=== PATIENT | female | born 1975 ===

== ENCOUNTER 2016-12-25 16:55 | Inpatient (IN) | payer OTHER ==
[2016-12-25] MEDS ORDERED: Sodium Chloride 0.9% 1,000 ML IV ONE ×2 (17:19→18:48)
[2016-12-25 17:20] VITALS: BMI 27.6
[2016-12-25] MEDS ORDERED: cefTRIAXone IV 1 gm in Dextros 50 ML IVPB ONE ×2 (17:21→17:37)
--- NOTE | 2016-12-25 17:27 | C.PDOC ---
History Of Present Illness 41-year-old female, PMHx includes Hyperthyroidism, presents to the emergency department with complaints of fever, vomiting, generalized headache, and chills that started earlier today. Patient states she has no complaints of pain, cough or sore throat. States she has stoped taking methamizole for last month as she was due for outpt test, but restarted 3 days ago (did not take today) Time Seen by Provider: 12/25/16 17:04 Chief Complaint (Nursing): Fever History Per: Patient History/Exam Limitations: no limitations Onset/Duration Of Symptoms: Hrs Current Symptoms Are (Timing): Still Present Past Medical History Reviewed: Historical Data, Nursing Documentation, Vital Signs Vital Signs: Last Vital Signs Temp 97.6 F 12/26/16 08:00 Pulse 97 H 12/26/16 08:00 Resp 20 12/26/16 08:00 BP 103/49 L 12/26/16 08:00 Pulse Ox 98 12/26/16 08:00 - Medical History PMH: Hyperthyroidism Surgical History: Cholecystectomy (x3) Family History: States: Unknown Family Hx - Social History Hx Tobacco Use: Yes Hx Alcohol Use: No Hx Substance Use: No - Immunization History Hx Tetanus Toxoid Vaccination: No Hx Influenza Vaccination: No Hx Pneumococcal Vaccination: No Review Of Systems Except As Marked, All Systems Reviewed And Found Negative. Constitutional: Positive for: Fever, Chills Respiratory: Negative for: Cough, Shortness of Breath Gastrointestinal: Positive for: Vomiting Genitourinary: Negative for: Dysuria, Frequency Musculoskeletal: Negative for: Back Pain Neurological: Positive for: Headache. Negative for: Weakness, Numbness, Dizziness Physical Exam - Physical Exam Appears: Non-toxic, No Acute Distress, Other (Moderately agitated and anxious appearing.) Skin: Warm, Dry, No Rash Head: Atraumatic, Normacephalic Eye(s): bilateral: Other (exophthalmos) Nose: Normal Oral Mucosa: Moist Lips: Normal Appearing Neck: Normal ROM Cardiovascular: Rhythm Regular Respiratory: Normal Breath Sounds, No Accessory Muscle Use Extremity: Normal ROM Neurological/Psych: Oriented x3, Normal Speech ED Course And Treatment - Laboratory Results Result Diagrams: 12/26/16 06:20 12/26/16 06:18 O2 Sat by Pulse Oximetry: 100 Critical Care Time - Critical Care Note Total Time (in mins): 45 Documented critical care: time excludes all time spent performing seperately billable procedures. Medical Decision Making Medical Decision Making: r/o sepsis vs thyroid storm Plan: * VBG * EKG * CMP, Thyroid Panel, Trop I * CXR * CBC, PTT, PT * IVF, Tylenol, Zofran, Ceftriaxone * Blood/Urine Culture * 624: ekg sinus tach 123, no st t wave changes. BWPS score calculated to be 65. beta tyrell dosed. case discusse with ICU dr foss, pending icu eval. case accepted by dr mcdonald pending icu eval 700: pt endorsed to operations supervisor 2nd shift. pending ICU eval, and final dispo Disposition - Disposition Disposition: HOSPITALIZED Disposition Time: 07:00 Condition: SERIOUS - Clinical Impression Clinical Impression: Thyroid storm - Scribe Statement The provider has reviewed the documentation as recorded by the Mirellaibvalarie Nazario All medical record entries made by the Scribe were at my direction and personally dictated by me. I have reviewed the chart and agree that the record accurately reflects my personal performance of the history, physical exam, medical decision making, and the department course for this patient. I have also personally directed, reviewed, and agree with the discharge instructions and disposition.
[2016-12-25] MEDS ORDERED: Sodium Chloride 0.9% 1,000 ML ONE (17:37)
[2016-12-25 17:51] LABS: VENOUS BLOOD GAS BASE EXCESS -0.2 mmol/L (0.0-2.0); VENOUS BLOOD GAS PCO2 31 mmHg (40-60); VENOUS BLOOD PH 7.47 (7.32-7.43)
[2016-12-25 17:55] LABS: RBC URINE 89 /hpf (0-3); URINE BACTERIA MOD (<OCC); URINE BILIRUBIN NEGATIVE (NEGATIVE); URINE BLOOD 2+ (NEGATIVE); URINE COLOR Amber (YELLOW); URINE GLUCOSE (UA) NORMAL (Normal); URINE KETONE NEGATIVE (NEGATIVE); URINE LEUKOCYTE ESTERASE 3+ Leu/uL (Negative); URINE PROTEIN 2+ mg/dL (NEGATIVE); WBC CLUMPS MANY /hpf; WBC URINE 1193 /hpf (0-5)
[2016-12-25 17:59] LABS: BASO % 0.3 % (0.0-2.0); EOS % 0.1 % (0.0-4.0); LYMPH # 1.3 K/uL (1.0-4.3); MEAN CELL VOLUME 79.1 fL (81.0-99.0); MEAN CORPUSCULAR HEMOGLOBIN 26.3 pg (27.0-31.0); MEAN CORPUSCULAR HGB CONC 33.3 g/dL (33.0-37.0); MEAN PLATELET VOLUME 8.6 fL (7.2-11.7); MONO # 0.9 K/uL (0.0-0.8); MONO % 8.8 % (0.0-10.0); WHITE BLOOD COUNT 10.3 K/uL (4.8-10.8)
[2016-12-25 18:10] LABS: INR 1.4
[2016-12-25 18:16] LABS: CHLORIDE 101 mmol/L (98-107); POTASSIUM 3.8 mmol/L (3.6-5.2); SODIUM 132 mmol/L (132-148)
[2016-12-25 18:18] LABS: BILIRUBIN,TOTAL 2.6 mg/dL (0.2-1.3); CARBON DIOXIDE 22 mmol/L (22-30); GFR AFRICAN-AMERICAN > 60
[2016-12-25 18:19] LABS: ALB/GLOB RATIO 0.8 (1.0-2.1); ALKALINE PHOSPHATASE 122 U/L (38-126); ALT/SGPT 30 U/L (9-52); AST/SGOT 30 U/L (14-36); BLOOD UREA NITROGEN 12 mg/dL (7-17); CALCIUM 8.3 mg/dl (8.6-10.4); GLUCOSE,RANDOM 92 mg/dL (65-105); TOTAL PROTEIN 6.8 g/dL (6.3-8.3)
[2016-12-25] MEDS ORDERED: Propranolol 60 mg ER Cap PO STA (18:23)
[2016-12-25 18:45] LABS: THYROID STIMULATING HORMONE < 0.02 mIU/L (0.46-4.68)
--- NOTE | 2016-12-25 20:29 | CP.PCM.CON ---
History of Present Illness - History of Present Illness History of Present Illness: CCM 41 yo female with hx Hyperthyroidism to ED c/o [place] and leg pain today. + vomiting. [place] cold. No sob /diarrhea /cough /dysuria. Pt has been off methimazole but took 2-3 days aog. Tachy and febrile in ED. Started on Ab for UTI. Given propanolol/ tylenol and IV fluid. Pt feels sl. better. ROS- as noted All- NKDA Social- + tob/ n oetoh or drugs PSH- Cholecystectomy Meds- reviewed FH- Unknown Pe T- 102.7--> 98.8 P 120 R- 20 BP- 128/63 Pt anxious and sl. tremulous Perrl + exopthalmos Neck-+ goiter Lungs- bilat bs Heart-rr aBd- bs+, soft, nontender Ext- no edema, + pulses intact Neuro-nonfocal Labs, EKG, [id number] A&P Thyroid Storm/Hyperthyroidism UTI +Smoker Toño to ICU cont IV fluid/Ab cont BB / Methimazole Rx steroids Endocrine eval f/u cultures antipyretics prn antiemetics prn DVT prophylaxis Past Patient History - Infectious Disease Hx of Infectious Diseases: None - Past Social History Smoking Status: Light Smoker < 10 Cigarettes Daily - ENDOCRINE/METABOLIC Hx Hyperthyroidism: Yes - PSYCHIATRIC Hx Substance Use: No - SURGICAL HISTORY Hx Cholecystectomy: Yes (x3) - ANESTHESIA Hx Anesthesia: Yes Hx Anesthesia Reactions: No Hx Malignant Hyperthermia: No Meds Allergies/Adverse Reactions: Allergies Allergy/AdvReac Type Severity Reaction Status Date / Time No Known Allergies Allergy Verified 12/25/16 17:11 Results - Vital Signs Recent Vital Signs: Last Vital Signs Temp 98.8 F 12/25/16 19:00 Pulse 120 H 12/25/16 19:00 Resp 16 12/25/16 19:00 BP 128/63 12/25/16 19:00 Pulse Ox 100 12/25/16 19:00 - Labs Result Diagrams: 12/25/16 17:50 12/25/16 17:50 Labs: Laboratory Results - last 24 hr 12/25/16 12/25/16 12/25/16 17:36 17:45 17:50 WBC 10.3 D RBC 4.29 Hgb 11.3 Hct 34.0 MCV 79.1 L MCH 26.3 L MCHC 33.3 RDW 13.0 Plt Count 246 MPV 8.6 Neut % (Auto) 77.8 H Lymph % (Auto) 13.0 L [place] % (Auto) 8.8 Eos % (Auto) 0.1 Baso % (Auto) 0.3 Neut # 8.0 H Lymph # 1.3 [place] # 0.9 H Eos # 0.0 Baso # 0.0 PT INR APTT pO2 44 VBG pH 7.47 H VBG pCO2 31 L VBG HCO3 24.4 VBG Total CO2 23.6 VBG O2 Sat (Calc) 87.4 H VBG Base Excess -0.2 L VBG Potassium 3.9 Sodium 135.0 Chloride 106.0 Glucose 88 Lactate 1.2 FiO2 21.0 Potassium Carbon Dioxide Anion Gap BUN Creatinine Est GFR ( Amer) Est GFR (Non-Af Amer) Random Glucose Calcium Total Bilirubin AST ALT Alkaline Phosphatase Troponin I Total Protein Albumin Globulin Albumin/Globulin Ratio Free T4 TSH 3rd Generation Venous Blood Potassium 3.9 Urine Color Tanna Urine Clarity Turbid Urine pH 5.0 Ur Specific [place] 1.015 Urine Protein 2+ H Urine Glucose (UA) Normal Urine Ketones Negative Urine Blood 2+ H Urine Nitrate Positive H Urine Bilirubin Negative Urine Urobilinogen 2.0 H Ur Leukocyte Esterase 3+ H Urine WBC (Auto) 1193 H Urine RBC (Auto) 89 H Urine WBC Clumps (Auto) Many H Ur Squamous Epith Cells 14 H Urine Bacteria Mod H Urine HCG, Qual Negative 12/25/16 12/25/16 12/25/16 17:50 17:50 17:50 WBC RBC Hgb Hct MCV MCH MCHC RDW Plt Count MPV Neut % (Auto) Lymph % (Auto) [place] % (Auto) Eos % (Auto) Baso % (Auto) Neut # Lymph # [place] # Eos # Baso # PT 15.8 H INR 1.4 APTT 36 H pO2 VBG pH VBG pCO2 VBG HCO3 VBG Total CO2 VBG O2 Sat (Calc) VBG Base Excess VBG Potassium Sodium 132 Chloride 101 Glucose Lactate FiO2 Potassium 3.8 Carbon Dioxide 22 Anion Gap 14 BUN 12 Creatinine 0.4 L Est GFR ( Amer) > 60 Est GFR (Non-Af Amer) > 60 Random Glucose 92 Calcium 8.3 L Total Bilirubin 2.6 H AST 30 ALT 30 Alkaline Phosphatase 122 Troponin I < 0.0120 Total Protein 6.8 Albumin 3.1 L Globulin 3.7 Albumin/Globulin Ratio 0.8 L Free T4 > 6.99 H TSH 3rd Generation < 0.02 L Venous Blood Potassium Urine Color Urine Clarity Urine pH Ur Specific [place] Urine Protein Urine Glucose (UA) Urine Ketones Urine Blood Urine Nitrate Urine Bilirubin Urine Urobilinogen Ur Leukocyte Esterase Urine WBC (Auto) Urine RBC (Auto) Urine WBC Clumps (Auto) Ur Squamous Epith Cells Urine Bacteria Urine HCG, Qual Assessment & Plan (1) Thyroid storm Status: Acute Priority: High
[2016-12-25] MEDS: Sodium Chloride 0.9% 1,000 ML IV SCH (21:48)
[2016-12-26] MEDS: Sodium Chloride 0.9% 1,000 ML IV SCH ×5 (03:55→23:30)
[2016-12-26] MEDS ORDERED: Oxycodone/Acetaminophen 5/325 mg Tab PO STA (06:21)
[2016-12-26 06:30] LABS: BASO % 0.1 % (0.0-2.0); HEMATOCRIT 31.4 % (34.0-47.0); LYMPH # 0.8 K/uL (1.0-4.3); LYMPH % 4.9 % (20.0-40.0); MEAN CELL VOLUME 80.2 fL (81.0-99.0); MEAN CORPUSCULAR HEMOGLOBIN 26.3 pg (27.0-31.0); MEAN CORPUSCULAR HGB CONC 32.8 g/dL (33.0-37.0); MEAN PLATELET VOLUME 8.8 fL (7.2-11.7); MONO # 1.3 K/uL (0.0-0.8); MONO % 7.6 % (0.0-10.0); PLATELET COUNT 217 K/uL (130-400); RED CELL DISTRIBUTION WIDTH 13.2 % (11.5-14.5); WHITE BLOOD COUNT 17.5 K/uL (4.8-10.8)
[2016-12-26 06:38] LABS: CHLORIDE 107 mmol/L (98-107)
[2016-12-26 06:39] LABS: POTASSIUM 3.4 mmol/L (3.6-5.2); SODIUM 135 mmol/L (132-148)
[2016-12-26 06:41] LABS: ALB/GLOB RATIO 0.7 (1.0-2.1); ALKALINE PHOSPHATASE 106 U/L (38-126); AST/SGOT 27 U/L (14-36); BILIRUBIN,TOTAL 2.7 mg/dL (0.2-1.3); BLOOD UREA NITROGEN 12 mg/dL (7-17); CARBON DIOXIDE 20 mmol/L (22-30); GFR AFRICAN-AMERICAN > 60; TOTAL PROTEIN 6.2 g/dL (6.3-8.3)
[2016-12-26 06:42] LABS: ALT/SGPT 30 U/L (9-52); CALCIUM 8.4 mg/dl (8.6-10.4); GLUCOSE,RANDOM 102 mg/dL (65-105)
--- NOTE | 2016-12-26 08:10 | RAD ---
PROCEDURE: CHEST RADIOGRAPH, 1 VIEW HISTORY: chest pain COMPARISON: Comparison is made to the previous study dated 01/31/2014 FINDINGS: LUNGS: No evidence of new infiltrate or consolidation in the lungs. Prominent lung markings seen. PLEURA: No pneumothorax or pleural fluid seen. CARDIOVASCULAR: Normal. OSSEOUS STRUCTURES: No significant abnormalities. VISUALIZED UPPER ABDOMEN: Normal. OTHER FINDINGS: None. IMPRESSION: No active disease.
[2016-12-26] MEDS ORDERED: Potassium Chloride 20 mEq ER Tab PO ONE (08:24)
[2016-12-26 08:51] LABS: MAGNESIUM 1.8 mg/dL (1.6-2.3)
[2016-12-26 09:31] LABS: NEUTROPHIL 83 % (50-75); TOTAL CELLS COUNTED 100
[2016-12-26 09:32] LABS: LARGE PLATELETS PRESENT
--- NOTE | 2016-12-26 09:34 | CP.PCM.HP ---
History of Present Illness - History of Present Illness History of Present Illness: CCM 41 yo female with hx Hyperthyroidism to ED c/o [place] and leg pain today. + vomiting. [place] cold. No sob /diarrhea /cough /dysuria. Pt has been off methimazole but took 2-3 days aog. Tachy and febrile in ED. Started on Ab for UTI. Given propanolol/ tylenol and IV fluid. Pt feels sl. better. ROS- as noted All- NKDA Social- + tob/ n oetoh or drugs PSH- Cholecystectomy Meds- reviewed FH- Unknown Pe T- 102.7--> 98.8 P 120 R- 20 BP- 128/63 Pt anxious and sl. tremulous Perrl + exopthalmos Neck-+ goiter Lungs- bilat bs Heart-rr aBd- bs+, soft, nontender Ext- no edema, + pulses intact Neuro-nonfocal Labs, EKG, [id number] A&P Thyroid Storm/Hyperthyroidism UTI +Smoker Toño to ICU cont IV fluid/Ab cont BB / Methimazole Rx steroids Endocrine eval f/u cultures antipyretics prn antiemetics prn DVT prophylaxis Present on Admission - Present on Admission Any Indicators Present on Admission: No Past Patient History - Infectious Disease Hx of Infectious Diseases: None - Past Medical History & Family History Past Medical History?: Yes - Past Social History Smoking Status: Former Smoker - CARDIAC Hx Cardiac Disorders: No - PULMONARY Hx Respiratory Disorders: No - NEUROLOGICAL Hx Neurological Disorder: No - HEENT Hx HEENT Problems: No - RENAL Hx Chronic Kidney Disease: No - ENDOCRINE/METABOLIC Hx Endocrine Disorders: Yes Hx Hyperthyroidism: Yes - HEMATOLOGICAL/ONCOLOGICAL Hx Blood Disorders: No - INTEGUMENTARY Hx Dermatological Problems: No - MUSCULOSKELETAL/RHEUMATOLOGICAL Hx Musculoskeletal Disorders: No - GASTROINTESTINAL Hx Gastrointestinal Disorders: No - GENITOURINARY/GYNECOLOGICAL Hx Genitourinary Disorders: No - PSYCHIATRIC Hx Substance Use: No - SURGICAL HISTORY Hx Section: Yes (x3) Hx Cholecystectomy: Yes (15 years ago) - ANESTHESIA Hx Anesthesia: Yes Hx Anesthesia Reactions: No Hx Malignant Hyperthermia: No Has any member of the family had a problem w/ anesthesia?: No Meds Allergies/Adverse Reactions: Allergies Allergy/AdvReac Type Severity Reaction Status Date / Time No Known Allergies Allergy Verified 12/25/16 17:11 Results - Vital Signs Recent Vital Signs: Last Vital Signs Temp 97.6 F 12/26/16 08:00 Pulse 97 H 12/26/16 08:00 Resp 20 12/26/16 08:00 BP 103/49 L 12/26/16 08:00 Pulse Ox 98 12/26/16 08:00 - Labs Result Diagrams: 12/29/16 06:34 12/29/16 06:34 Labs: Laboratory Results - last 24 hr 12/26/16 12/26/16 06:18 06:20 WBC 17.5 H D RBC 3.92 Hgb 10.3 L Hct 31.4 L MCV 80.2 L MCH 26.3 L MCHC 32.8 L RDW 13.2 Plt Count 217 MPV 8.8 Neut % (Auto) 87.4 H Lymph % (Auto) 4.9 L [place] % (Auto) 7.6 Eos % (Auto) 0.0 Baso % (Auto) 0.1 Neut # 15.3 H Lymph # 0.8 L [place] # 1.3 H Eos # 0.0 Baso # 0.0 Neutrophils % (Manual) 83 H Band Neutrophils % 1 Lymphocytes % (Manual) 8 L Monocytes % (Manual) 8 Platelet Estimate Normal Large Platelets Present RBC Morphology Normal Sodium 135 Potassium 3.4 L Chloride 107 Carbon Dioxide 20 L Anion Gap 11 BUN 12 Creatinine 0.4 L Est GFR ( Amer) > 60 Est GFR (Non-Af Amer) > 60 Random Glucose 102 Calcium 8.4 L Phosphorus 3.0 Magnesium 1.8 Total Bilirubin 2.7 H AST 27 ALT 30 Alkaline Phosphatase 106 Total Protein 6.2 L Albumin 2.6 L Globulin 3.6 Albumin/Globulin Ratio 0.7 L
[2016-12-26] MEDS: Enoxaparin 40 mg Syringe SC SCH (09:56)
--- NOTE | 2016-12-26 09:59 | CP.CCUPN ---
CCU Subjective - Physician Review Events Since Last Encounter (Free Text): 12/26/16 09:58 Patient seen and examined in the morning, doing well, seems sleepy. She states she has been having fever due to her UTI and she needs antibiotics, stopped methimazole at least 3 weeks back. ros: tired pe: bp 108/60 mmhg, hr 96 bpm, rr 26 bpm, o2 97% on RA, last fever 102 at 5 am today aaox3 s1, s2 rrr lungs good bilateral air of entry abdomen global, soft, non tender skin no rashes able to move all extremities well exophtlamos, not tremulous a/p: thyroid storm: symptoms controlled, continue propranolol, methymazole and steroids, free T4 over 6.9, than less than 0.02, consulted Dr. Bledsoe from endocrinology, spoke to patient about compliance with medications. uti: on ceftriaxone, urine culture growing gram negative rods, elevation in wbc count most likely due to steroids CCU Objective - Vital Signs / Intake & Output Vital Signs (Last 4 hours): Vital Signs Temp Pulse Resp BP Pulse Ox 12/26/16 09:57 100 12/26/16 08:00 97.6 F 97 H 20 103/49 L 98 12/26/16 07:00 99 F 106 H 25 H 123/57 L 98 12/26/16 06:00 117 H 28 H 119/60 97 Intake and Output (Last 8hrs): Intake & Output 12/25/16 12/26/16 12/26/16 22:59 06:59 14:59 Intake Total 270 1400 300 Output Total 0 604 200 Balance 270 796 100 Weight 176 lb 11.2 oz Intake: Intake, IV Amount 150 1200 300 Left Antecubital 150 1200 300 Oral 120 200 Output: Urine 0 600 200 Urine, Voided 0 600 200 Stool 3 Urine/Stool Mix 1 Other: Voiding Method Bedpan - Medications Active Medications: Active Medications Generic Name Dose Route Start Last Admin Trade Name Freq PRN Reason Stop Dose Admin Acetaminophen 650 mg 12/25/16 20:31 12/26/16 04:50 Tylenol 325mg Tab PO 650 mg Q4 PRN Administration Fever >100.4 F Enoxaparin Sodium 40 mg 12/26/16 10:00 12/26/16 09:56 Lovenox SC 40 mg DAILY [place] Administration Hydrocortisone Sodium Succinate 100 mg 12/25/16 20:41 05/14/17 09:55 Solu-Cortef IV 100 mg Q6H [place] Administration Sodium Chloride 1,000 mls @ 150 mls/hr 12/25/16 21:00 12/26/16 03:55 Sodium Chloride 0.9% IV 150 mls/hr .[id number] [place] Administration Ceftriaxone Sodium 1 gm/ 100 mls @ 200 mls/hr 12/26/16 10:00 Sodium Chloride IVPB DAILY [place] Methimazole 20 mg 12/25/16 21:00 12/26/16 09:55 Tapazole PO 20 mg Q6H [place] Administration Propranolol HCl 40 mg 12/25/16 21:00 12/26/16 09:55 Inderal PO 40 mg Q6H [place] Administration - Patient Studies Lab Studies: Lab Studies 12/26/16 12/26/16 Range/Units 06:20 06:18 WBC 17.5 H D (4.8-10.8) K/uL RBC 3.92 (3.80-5.20) Mil/uL Hgb 10.3 L (11.0-16.0) g/dL Hct 31.4 L (34.0-47.0) % MCV 80.2 L (81.0-99.0) fL MCH 26.3 L (27.0-31.0) pg MCHC 32.8 L (33.0-37.0) g/dL RDW 13.2 (11.5-14.5) % Plt Count 217 (130-400) K/uL MPV 8.8 (7.2-11.7) fL Neut % (Auto) 87.4 H (50.0-75.0) % Lymph % (Auto) 4.9 L (20.0-40.0) % [place] % (Auto) 7.6 (0.0-10.0) % Eos % (Auto) 0.0 (0.0-4.0) % Baso % (Auto) 0.1 (0.0-2.0) % Neut # 15.3 H (1.8-7.0) K/uL Lymph # 0.8 L (1.0-4.3) K/uL [place] # 1.3 H (0.0-0.8) K/uL Eos # 0.0 (0.0-0.7) K/uL Baso # 0.0 (0.0-0.2) K/uL Neutrophils % (Manual) 83 H (50-75) % Band Neutrophils % 1 (0-2) % Lymphocytes % (Manual) 8 L (20-40) % Monocytes % (Manual) 8 (0-10) % Platelet Estimate Normal (NORMAL) Large Platelets Present RBC Morphology Normal Sodium 135 (132-148) mmol/L Potassium 3.4 L (3.6-5.2) mmol/L Chloride 107 (98-107) mmol/L Carbon Dioxide 20 L (22-30) mmol/L Anion Gap 11 (10-20) BUN 12 (7-17) mg/dL Creatinine 0.4 L (0.7-1.2) MG/DL Est GFR ( Amer) > 60 Est GFR (Non-Af Amer) > 60 Random Glucose 102 (65-105) mg/dL Calcium 8.4 L (8.6-10.4) mg/dl Phosphorus 3.0 (2.5-4.5) mg/dL Magnesium 1.8 (1.6-2.3) mg/dL Total Bilirubin 2.7 H (0.2-1.3) mg/dL AST 27 (14-36) U/L ALT 30 (9-52) U/L Alkaline Phosphatase 106 (38-126) U/L Total Protein 6.2 L (6.3-8.3) g/dL Albumin 2.6 L (3.5-5.0) g/dL Globulin 3.6 (2.2-3.9) gm/dL Albumin/Globulin Ratio 0.7 L (1.0-2.1) Laboratory Results - last 24 hr 12/26/16 12/26/16 06:18 06:20 WBC 17.5 H D RBC 3.92 Hgb 10.3 L Hct 31.4 L MCV 80.2 L MCH 26.3 L MCHC 32.8 L RDW 13.2 Plt Count 217 MPV 8.8 Neut % (Auto) 87.4 H Lymph % (Auto) 4.9 L [place] % (Auto) 7.6 Eos % (Auto) 0.0 Baso % (Auto) 0.1 Neut # 15.3 H Lymph # 0.8 L [place] # 1.3 H Eos # 0.0 Baso # 0.0 Neutrophils % (Manual) 83 H Band Neutrophils % 1 Lymphocytes % (Manual) 8 L Monocytes % (Manual) 8 Platelet Estimate Normal Large Platelets Present RBC Morphology Normal Sodium 135 Potassium 3.4 L Chloride 107 Carbon Dioxide 20 L Anion Gap 11 BUN 12 Creatinine 0.4 L Est GFR ( Amer) > 60 Est GFR (Non-Af Amer) > 60 Random Glucose 102 Calcium 8.4 L Phosphorus 3.0 Magnesium 1.8 Total Bilirubin 2.7 H AST 27 ALT 30 Alkaline Phosphatase 106 Total Protein 6.2 L Albumin 2.6 L Globulin 3.6 Albumin/Globulin Ratio 0.7 L
--- NOTE | 2016-12-26 15:07 | CON ---
DATE: 12/26/2016 ADDENDUM To continue my consult: REVIEW OF SYSTEMS: She also admits to sudden onset of precordial chest pain with palpitations, progr essively worse in the last few days prior to admission with progressive shortness of breath, initiall y on exertion and then at rest. Her oral intake has been variable and suboptimal with nausea, dyspep corinne, and hyperdefecation. No recent alterations of urinary patterns otherwise. Also, admits to gene ralized anxiety with marked insomnia and hyperadrenergic manifestations otherwise with supervening tr emors in both upper and lower extremities. PHYSICAL EXAMINATION: GENERAL: This is an average-built female, in no apparent distress. VITAL SIGNS: Blood pressure of 160/90, pulse of 120 beats per minute initially and now it is down to 100 beats per minute, regular, temperature was 102.7 initially and today is 99, respirations 20. He ight is 5 feet 7 inches, weight is 176 pounds. HEENT: Head normocephalic. Eyes anicteric with pink conjunctivae. Fundoscopy not possible at this time. There is overt proptosis and lid retraction in both eyes. Otherwise normal. NECK: Supple. Thyroid gland shows diffuse thyromegaly, which is firm and nontender with no overt th yroid bruits or thyroid nodules at this time. HEART: Hyperdynamic precordium. S1, S2 is rapid and regular. LUNGS: Show scattered rhonchi. ABDOMEN: Flat, soft with positive bowel sounds. EXTREMITIES: No peripheral edema. Pulses are +2 bilaterally. LABORATORIES: The showed a free T4 of greater than 6.99 with a TSH of less than 0.02. Hospital Sales Representative bradley: BUN of 12, sodium 135, potassium 3.4, chloride 107, CO2 20, glucose 102 and creatinine 0.4, al bumin is 2.6, calcium is 8.4. ASSESSMENT: This is a 41-year-old female with overt thyrotoxicosis, both historically, clinically, a nd biochemically related to underlying autoimmune thyroiditis, i.e., Graves' disease with very poor a dherence to her medical therapy as noted. She also has overt hyperadrenergic and constitutional alla festations of marked hyperthyroidism as expected thereof. 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 PLAN OF MANAGEMENT: Concur with the present management in the ICU of high-dose medical therapy with Tapazole as given and also concomitant hydrocortisone as an empirical prophylaxis for possible hypoad renalism. We will obtain a comprehensive thyroid hormonal profile with a total and free T4 and TSH t omorrow. We will also include a thyroid stimulating immunoglobulin and a thyroid peroxidase antibody , which will confirm and/or negate the presence of underlying thyroid autoimmunity. We will also obt ain a thyroid ultrasound to delineate the full thyroid lobe dimensions otherwise. The therapeutic op tions for definitive therapy have to be discussed with the patient prior to discharge and we will off er her the options of surgical resection depending on the thyroid ultrasound report and/or radioactiv e iodine ablation therapy, but there is a caveat for radioiodine ablation as this may worsen the eye disease or the thyroid orbitopathy. We will follow and advise accordingly. Sarika Bledsoe MD cc: [id number] TT: 12/26/2016 15:06:52 Confirmation # [id number] Dictation # [id number] en
[2016-12-27] MEDS: Sodium Chloride 0.9% 1,000 ML IV SCH ×2 (03:15→14:38)
[2016-12-27 07:01] LABS: BASO % 0.1 % (0.0-2.0); HEMATOCRIT 29.1 % (34.0-47.0); LYMPH % 8.5 % (20.0-40.0); MEAN CELL VOLUME 80.5 fL (81.0-99.0); MEAN CORPUSCULAR HEMOGLOBIN 26.5 pg (27.0-31.0); MEAN CORPUSCULAR HGB CONC 32.8 g/dL (33.0-37.0); MEAN PLATELET VOLUME 8.8 fL (7.2-11.7); MONO # 0.7 K/uL (0.0-0.8); NRBC % 0.2 % (0.0-2.0); PLATELET COUNT 204 K/uL (130-400); RED CELL DISTRIBUTION WIDTH 13.4 % (11.5-14.5); WHITE BLOOD COUNT 11.6 K/uL (4.8-10.8)
[2016-12-27 07:05] LABS: CHLORIDE 107 mmol/L (98-107)
[2016-12-27 07:06] LABS: SODIUM 136 mmol/L (132-148)
[2016-12-27 07:07] LABS: POTASSIUM 3.6 mmol/L (3.6-5.2)
[2016-12-27 07:09] LABS: ALB/GLOB RATIO 0.7 (1.0-2.1); ALKALINE PHOSPHATASE 77 U/L (38-126); ALT/SGPT 25 U/L (9-52); AST/SGOT 20 U/L (14-36); BILIRUBIN,TOTAL 0.8 mg/dL (0.2-1.3); BLOOD UREA NITROGEN 14 mg/dL (7-17); CARBON DIOXIDE 23 mmol/L (22-30); GFR AFRICAN-AMERICAN > 60; GLUCOSE,RANDOM 136 mg/dL (65-105); TOTAL PROTEIN 6.1 g/dL (6.3-8.3)
[2016-12-27 07:10] LABS: CALCIUM 8.9 mg/dl (8.6-10.4); MAGNESIUM 1.9 mg/dL (1.6-2.3); PHOSPHOROUS 2.4 mg/dL (2.5-4.5)
[2016-12-27 07:24] LABS: T4 18.3 ug/dL (5.5-11.0)
--- NOTE | 2016-12-27 08:14 | CON ---
DATE: 12/26/2016 In ICU, room 14A This is a 41-year-old female with known history of longstanding hyperthyroidism, apparently has been off medications for a few months and noted progressively worsening generalized body weakness with eas y fatigability and tiredness and supervening palpitations and precordial chest pain prompting this ER visit and subsequent admission. She was found to be in sinus tachycardia with high-grade fever and the possibility of a near thyroid storm was evaluated as the initial working diagnosis. PAST MEDICAL HISTORY: As mentioned above, history of hyperthyroidism and has been on Tapazole with a variable dosing as noted thereof. History of hypertension and dyslipidemia. REVIEW OF SYSTEMS: She also admits to sudden onset of precordial chest pain with palpitations, progr essively worse in the last few days prior to admission with progressive shortness of breath, initiall y on exertion and then at rest. Her oral intake has been variable and suboptimal with nausea, dyspep corinne, and hyperdefecation. No recent alterations of urinary patterns otherwise. Also, admits to gene ralized anxiety with marked insomnia and hyperadrenergic manifestations otherwise with supervening tr emors in both upper and lower extremities. PHYSICAL EXAMINATION: GENERAL: This is an average-built female, in no apparent distress. VITAL SIGNS: Blood pressure of 160/90, pulse of 120 beats per minute initially and now it is down to 100 beats per minute, regular, temperature was 102.7 initially and today is 99, respirations 20. He ight is 5 feet 7 inches, weight is 176 pounds. HEENT: Head normocephalic. Eyes anicteric with pink conjunctivae. Fundoscopy not possible at this time. There is overt proptosis and lid retraction in both eyes. Otherwise normal. NECK: Supple. Thyroid gland shows diffuse thyromegaly, which is firm and nontender with no overt th yroid bruits or thyroid nodules at this time. HEART: Hyperdynamic precordium. S1, S2 is rapid and regular. LUNGS: Show scattered rhonchi. ABDOMEN: Flat, soft with positive bowel sounds. EXTREMITIES: No peripheral edema. Pulses are +2 bilaterally. LABORATORIES: The showed a free T4 of greater than 6.99 with a TSH of less than 0.02. [employer] Y[employer] Sorter bradley: BUN of 12, sodium 135, potassium 3.4, chloride 107, CO2 20, glucose 102 and creatinine 0.4, al bumin is 2.6, calcium is 8.4. ASSESSMENT: This is a 41-year-old female with overt thyrotoxicosis, both historically, clinically, a nd biochemically related to underlying autoimmune thyroiditis, i.e., Graves' disease with very poor a dherence to her medical therapy as noted. She also has overt hyperadrenergic and constitutional alla festations of marked hyperthyroidism as expected thereof. 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 PLAN OF MANAGEMENT: Concur with the present management in the ICU of high-dose medical therapy with Tapazole as given and also concomitant hydrocortisone as an empirical prophylaxis for possible hypoad renalism. We will obtain a comprehensive thyroid hormonal profile with a total and free T4 and TSH t omorrow. We will also include a thyroid stimulating immunoglobulin and a thyroid peroxidase antibody , which will confirm and/or negate the presence of underlying thyroid autoimmunity. We will also obt ain a thyroid ultrasound to delineate the full thyroid lobe dimensions otherwise. The therapeutic op tions for definitive therapy have to be discussed with the patient prior to discharge and we will off er her the options of surgical resection depending on the thyroid ultrasound report and/or radioactiv e iodine ablation therapy, but there is a caveat for radioiodine ablation as this may worsen the eye disease or the thyroid orbitopathy. We will follow and advise accordingly. Sarika Bledsoe MD cc: [id number] TT: 12/26/2016 14:57:49 Confirmation # [id number] Dictation # [id number] en 12/27/2016 07:13:25
[2016-12-27 08:22] LABS: CORTISOL AM 79.2 ug/dL (4.46-22.7)
[2016-12-27 09:03] LABS: NEUTROPHIL 87 % (50-75); TOTAL CELLS COUNTED 100
[2016-12-27] MEDS: Enoxaparin 40 mg Syringe SC SCH (09:17)
[2016-12-27 09:42] LABS: THYROID STIMULATING HORMONE < 0.02 mIU/L (0.46-4.68)
--- NOTE | 2016-12-27 11:30 | CP.CCUPN ---
<Coleman Sheets - Last Filed: 12/27/16 11:28> CCU Subjective - Physician Review Subjective (Free Text): 12/27/16 11:28 PGY-1 progress note Pt seen and examined at bedside. Pt sitting up in bed, in no apparent distress, eating breakfast. Pt has no complaints this morning. Denies headache, chest pain , sob, palpitations, nausea, vomiting or leg pain. Critical Care Time Spent (in minutes): 35 CCU Objective - Vital Signs / Intake & Output Vital Signs (Last 4 hours): Vital Signs Temp Pulse Resp BP Pulse Ox 12/27/16 10:00 99 H 22 109/41 L 94 L 12/27/16 09:00 103 H 23 109/40 L 95 12/27/16 08:00 98 F 97 H 22 128/65 95 Intake and Output (Last 8hrs): Intake & Output 12/26/16 12/27/16 12/27/16 22:59 06:59 14:59 Intake Total 1700 1400 550 Output Total 1350 Balance 350 1400 550 Weight 182 lb 11.2 oz Intake: Intake, IV Amount 1200 1250 550 Left Antecubital 1200 1250 550 Oral 500 150 Output: Urine 1350 Urine, Voided 1350 Other: Voiding Method Bedpan - Physical Exam Head: Positive for: Atraumatic, Normocephalic Pupils: Positive for: PERRL Extroacular Muscles: Positive for: EOMI Conjunctiva: Positive for: Other (exopthalmos present) Mouth: Positive for: Moist Mucous Membranes Respiratory/Chest: Positive for: Clear to Auscultation, Good Air Exchange. Negative for: Respiratory Distress, Accessory Muscle Use Cardiovascular: Positive for: Normal S1, S2, Tachycardic Abdomen: Positive for: Normal Bowel Sounds. Negative for: Tenderness, Distention Upper Extremity: Positive for: NORMAL PULSES, Neurovascularly Intact Lower Extremity: Positive for: NORMAL PULSES, Neurovascularly Intact Neurological: Positive for: Speech Normal, Motor Func Grossly Intact Skin: Positive for: Warm, Dry Psychiatric: Positive for: Alert, Oriented x 3 - Medications Active Medications: Active Medications Generic Name Dose Route Start Last Admin Trade Name Freq PRN Reason Stop Dose Admin Acetaminophen 650 mg 12/25/16 20:31 12/26/16 04:50 Tylenol 325mg Tab PO 650 mg Q4 PRN Administration Fever >100.4 F Enoxaparin Sodium 40 mg 12/26/16 10:00 12/27/16 09:17 Lovenox SC 40 mg DAILY [place] Administration Hydrocortisone Sodium Succinate 100 mg 12/25/16 20:41 12/27/16 09:17 Solu-Cortef IV 100 mg Q6H [place] Administration Sodium Chloride 1,000 mls @ 150 mls/hr 12/25/16 21:00 12/27/16 03:15 Sodium Chloride 0.9% IV 150 mls/hr .[id number] [place] Administration Ceftriaxone Sodium 1 gm/ 100 mls @ 200 mls/hr 12/26/16 10:00 12/27/16 09:14 Sodium Chloride IVPB 200 mls/hr DAILY [place] Administration Methimazole 20 mg 12/25/16 21:00 12/27/16 09:18 Tapazole PO 20 mg Q6H [place] Administration Propranolol HCl 40 mg 12/25/16 21:00 12/27/16 09:17 Inderal PO 40 mg Q6H [place] Administration - Patient Studies Lab Studies: Microbiology Studies 12/25/16 Unknown MRSA Culture (Admit) - Final Naris MRSA NOT DETECTED Lab Studies 12/27/16 12/27/16 Range/Units 06:50 06:50 WBC 11.6 H (4.8-10.8) K/uL RBC 3.61 L (3.80-5.20) Mil/uL Hgb 9.6 L (11.0-16.0) g/dL Hct 29.1 L (34.0-47.0) % MCV 80.5 L (81.0-99.0) fL MCH 26.5 L (27.0-31.0) pg MCHC 32.8 L (33.0-37.0) g/dL RDW 13.4 (11.5-14.5) % Plt Count 204 (130-400) K/uL MPV 8.8 (7.2-11.7) fL Neut % (Auto) 85.4 H (50.0-75.0) % Lymph % (Auto) 8.5 L (20.0-40.0) % Sebastian % (Auto) 6.0 (0.0-10.0) % Eos % (Auto) 0.0 (0.0-4.0) % Baso % (Auto) 0.1 (0.0-2.0) % Neut # 9.9 H (1.8-7.0) K/uL Lymph # 1.0 (1.0-4.3) K/uL Sebastian # 0.7 (0.0-0.8) K/uL Eos # 0.0 (0.0-0.7) K/uL Baso # 0.0 (0.0-0.2) K/uL Neutrophils % (Manual) 87 H (50-75) % Lymphocytes % (Manual) 11 L (20-40) % Monocytes % (Manual) 2 (0-10) % Platelet Estimate Normal (NORMAL) Hypochromasia (manual) Slight Poikilocytosis (manual Slight Anisocytosis (manual) Slight Sodium 136 (132-148) mmol/L Potassium 3.6 (3.6-5.2) mmol/L Chloride 107 (98-107) mmol/L Carbon Dioxide 23 (22-30) mmol/L Anion Gap 10 (10-20) BUN 14 (7-17) mg/dL Creatinine 0.3 L (0.7-1.2) MG/DL Est GFR ( Amer) > 60 Est GFR (Non-Af Amer) > 60 Random Glucose 136 H (65-105) mg/dL Calcium 8.9 (8.6-10.4) mg/dl Phosphorus 2.4 L (2.5-4.5) mg/dL Magnesium 1.9 (1.6-2.3) mg/dL Total Bilirubin 0.8 (0.2-1.3) mg/dL AST 20 (14-36) U/L ALT 25 (9-52) U/L Alkaline Phosphatase 77 (38-126) U/L Total Protein 6.1 L (6.3-8.3) g/dL Albumin 2.6 L (3.5-5.0) g/dL Globulin 3.5 (2.2-3.9) gm/dL Albumin/Globulin Ratio 0.7 L (1.0-2.1) Thyroxine (T4) 18.3 H (5.5-11.0) ug/dL TSH 3rd Generation < 0.02 L (0.46-4.68) mIU/L Cortisol AM Sample 79.2 H (4.46-22.7) ug/dL Laboratory Results - last 24 hr 12/27/16 12/27/16 06:50 06:50 WBC 11.6 H RBC 3.61 L Hgb 9.6 L Hct 29.1 L MCV 80.5 L MCH 26.5 L MCHC 32.8 L RDW 13.4 Plt Count 204 MPV 8.8 Neut % (Auto) 85.4 H Lymph % (Auto) 8.5 L Sebastian % (Auto) 6.0 Eos % (Auto) 0.0 Baso % (Auto) 0.1 Neut # 9.9 H Lymph # 1.0 Sebastian # 0.7 Eos # 0.0 Baso # 0.0 Neutrophils % (Manual) 87 H Lymphocytes % (Manual) 11 L Monocytes % (Manual) 2 Platelet Estimate Normal Hypochromasia (manual) Slight Poikilocytosis (manual Slight Anisocytosis (manual) Slight Sodium 136 Potassium 3.6 Chloride 107 Carbon Dioxide 23 Anion Gap 10 BUN 14 Creatinine 0.3 L Est GFR ( Amer) > 60 Est GFR (Non-Af Amer) > 60 Random Glucose 136 H Calcium 8.9 Phosphorus 2.4 L Magnesium 1.9 Total Bilirubin 0.8 AST 20 ALT 25 Alkaline Phosphatase 77 Total Protein 6.1 L Albumin 2.6 L Globulin 3.5 Albumin/Globulin Ratio 0.7 L Thyroxine (T4) 18.3 H TSH 3rd Generation < 0.02 L Cortisol AM Sample 79.2 H Review of Systems - Review of Systems All systems: reviewed and no additional remarkable complaints except (where noted in the HPI) Assessment/Plan - Assessment and Plan (Free Text) Assessment: 41 yo F with hx of hyperthyroidism, admitted for thyroid storm. Symptoms now controlled. Likely able to be transferred today. Plan: Neuro: AAOx3 No acute issues Tylenol PRN fevers Pulm: Saturating well, no respiratory distress CV: tachycardic at times, no palpitations Propranolol for symptom control, tolerating well GI: No acute issues Renal: No acute issues Endo: Endo (Cam) following. T4 elevated at 18, tsh <0.02, cortisol AM sample 79.2. On methimazole and propranolol ID: UTI positive. Cultures show E. coli. On rocephin. Leukocytosis likely due to steroids - trending down. Afebrile DVT ppx - lovenox GI ppx - Protonix Pt status - full code <Shania Jang - Last Filed: 12/27/16 18:48> CCU Objective - Vital Signs / Intake & Output Vital Signs (Last 4 hours): Vital Signs Temp Pulse Resp BP Pulse Ox 12/27/16 18:00 93 H 22 121/50 L 94 L 12/27/16 17:00 101 H 21 133/63 95 12/27/16 16:00 97.8 F 99 H 20 136/72 96 12/27/16 15:00 92 H 21 136/57 L 95 Intake and Output (Last 8hrs): Intake & Output 12/27/16 12/27/16 12/27/16 06:59 14:59 22:59 Intake Total 1400 1310 240 Output Total 1100 Balance 1400 1310 -860 Weight 182 lb 11.2 oz Intake: Intake, IV Amount 1250 1000 Left Antecubital 1250 1000 Oral 150 310 240 Output: Urine 1100 Urine, Voided 1100 Other: Voiding Method Bedpan - Medications Active Medications: Active Medications Generic Name Dose Route Start Last Admin Trade Name Freq PRN Reason Stop Dose Admin Acetaminophen 650 mg 12/25/16 20:31 12/26/16 04:50 Tylenol 325mg Tab PO 650 mg Q4 PRN Administration Fever >100.4 F Enoxaparin Sodium 40 mg 12/26/16 10:00 12/27/16 09:17 Lovenox SC 40 mg DAILY [place] Administration Hydrocortisone Sodium Succinate 50 mg 12/27/16 18:00 12/27/16 17:15 Solu-Cortef IV 50 mg BID [place] Administration Ceftriaxone Sodium 1 gm/ 100 mls @ 200 mls/hr 12/26/16 10:00 12/27/16 09:14 Sodium Chloride IVPB 200 mls/hr DAILY [place] Administration Methimazole 20 mg 12/27/16 14:00 12/27/16 17:16 Tapazole PO 20 mg TID [place] Administration Pantoprazole Sodium 40 mg 12/28/16 10:00 Protonix Ec Tab PO DAILY [place] Propranolol HCl 40 mg 12/25/16 21:00 12/27/16 14:38 Inderal PO 40 mg Q6H [place] Administration - Patient Studies Lab Studies: Microbiology Studies 12/25/16 Unknown MRSA Culture (Admit) - Final Naris MRSA NOT DETECTED Lab Studies 12/27/16 12/27/16 Range/Units 06:50 06:50 WBC 11.6 H (4.8-10.8) K/uL RBC 3.61 L (3.80-5.20) Mil/uL Hgb 9.6 L (11.0-16.0) g/dL Hct 29.1 L (34.0-47.0) % MCV 80.5 L (81.0-99.0) fL MCH 26.5 L (27.0-31.0) pg MCHC 32.8 L (33.0-37.0) g/dL RDW 13.4 (11.5-14.5) % Plt Count 204 (130-400) K/uL MPV 8.8 (7.2-11.7) fL Neut % (Auto) 85.4 H (50.0-75.0) % Lymph % (Auto) 8.5 L (20.0-40.0) % Sebastian % (Auto) 6.0 (0.0-10.0) % Eos % (Auto) 0.0 (0.0-4.0) % Baso % (Auto) 0.1 (0.0-2.0) % Neut # 9.9 H (1.8-7.0) K/uL Lymph # 1.0 (1.0-4.3) K/uL Sebastian # 0.7 (0.0-0.8) K/uL Eos # 0.0 (0.0-0.7) K/uL Baso # 0.0 (0.0-0.2) K/uL Neutrophils % (Manual) 87 H (50-75) % Lymphocytes % (Manual) 11 L (20-40) % Monocytes % (Manual) 2 (0-10) % Platelet Estimate Normal (NORMAL) Hypochromasia (manual) Slight Poikilocytosis (manual Slight Anisocytosis (manual) Slight Sodium 136 (132-148) mmol/L Potassium 3.6 (3.6-5.2) mmol/L Chloride 107 (98-107) mmol/L Carbon Dioxide 23 (22-30) mmol/L Anion Gap 10 (10-20) BUN 14 (7-17) mg/dL Creatinine 0.3 L (0.7-1.2) MG/DL Est GFR ( Amer) > 60 Est GFR (Non-Af Amer) > 60 Random Glucose 136 H (65-105) mg/dL Calcium 8.9 (8.6-10.4) mg/dl Phosphorus 2.4 L (2.5-4.5) mg/dL Magnesium 1.9 (1.6-2.3) mg/dL Total Bilirubin 0.8 (0.2-1.3) mg/dL AST 20 (14-36) U/L ALT 25 (9-52) U/L Alkaline Phosphatase 77 (38-126) U/L Total Protein 6.1 L (6.3-8.3) g/dL Albumin 2.6 L (3.5-5.0) g/dL Globulin 3.5 (2.2-3.9) gm/dL Albumin/Globulin Ratio 0.7 L (1.0-2.1) Thyroxine (T4) 18.3 H (5.5-11.0) ug/dL TSH 3rd Generation < 0.02 L (0.46-4.68) mIU/L Cortisol AM Sample 79.2 H (4.46-22.7) ug/dL Laboratory Results - last 24 hr 12/27/16 12/27/16 06:50 06:50 WBC 11.6 H RBC 3.61 L Hgb 9.6 L Hct 29.1 L MCV 80.5 L MCH 26.5 L MCHC 32.8 L RDW 13.4 Plt Count 204 MPV 8.8 Neut % (Auto) 85.4 H Lymph % (Auto) 8.5 L Sebastian % (Auto) 6.0 Eos % (Auto) 0.0 Baso % (Auto) 0.1 Neut # 9.9 H Lymph # 1.0 Sebastian # 0.7 Eos # 0.0 Baso # 0.0 Neutrophils % (Manual) 87 H Lymphocytes % (Manual) 11 L Monocytes % (Manual) 2 Platelet Estimate Normal Hypochromasia (manual) Slight Poikilocytosis (manual Slight Anisocytosis (manual) Slight Sodium 136 Potassium 3.6 Chloride 107 Carbon Dioxide 23 Anion Gap 10 BUN 14 Creatinine 0.3 L Est GFR ( Amer) > 60 Est GFR (Non-Af Amer) > 60 Random Glucose 136 H Calcium 8.9 Phosphorus 2.4 L Magnesium 1.9 Total Bilirubin 0.8 AST 20 ALT 25 Alkaline Phosphatase 77 Total Protein 6.1 L Albumin 2.6 L Globulin 3.5 Albumin/Globulin Ratio 0.7 L Thyroxine (T4) 18.3 H TSH 3rd Generation < 0.02 L Cortisol AM Sample 79.2 H Attending/Attestation - Attestation I have personally seen and examined this patient.: Yes I have fully participated in the care of the patient.: Yes I have reviewed all pertinent clinical information: Yes Notes (Text): 12/27/16 18:48 doing well transfer to floor
--- NOTE | 2016-12-27 15:18 | PN ---
DATE: 12/27/2016 In ICU room 14A. This is a 41-year-old female with overt thyrotoxicosis related to underlying Graves' disease with genevieve y poor adherence to medical therapy as noted, presenting here with marked hyperthyroidism both histor ically, clinically, and biochemically as noted thereof. She also had marked sinus tachycardia and is currently improving hemodynamically as noted thereof. The latest thyroid study showed a T4 of 18.3 mcg/dL with a TSH of less than 0.02 and a free T4 of ove r 6.99. Her serum cortisol level is 79.2. The latest chemistry showed a BUN of 14, sodium 136, pota ssium 3.6, chloride 107, CO2 23, glucose 136 and creatinine 0.3. Her thyroid ultrasound was supposed to be undertaken today and the reports are pending at this time. So for now, we will lower her medical therapy to Tapazole given as 20 mg p.o. t.i.d. after meals to s tart today as ordered. We will also taper down the Solu-Cortef to 50 mg IV piggyback b.i.d. as order ed. We will obtain serial chemistries and serial thyroid studies and adjust her dose regimen accordi shanicely. The possibility of the eventual need for surgical resection of her very large toxic goiter was discussed with the patient and her parents at bedside. She will follow with Dr. Jenna Garcia, [facility] local wrap turner in the [facility] upon discharge for ongoing thyroid manageme nt. We will follow. Sarika Bledsoe MD cc: [phone] TT: 12/27/2016 15:18:04 Confirmation # [id number] Dictation # [id number] en
[2016-12-28 07:18] LABS: THYROID STIMULATING HORMONE < 0.02 mIU/L (0.46-4.68)
[2016-12-28] MEDS: Pantoprazole 40 mg EC Tab PO SCH (09:13)
[2016-12-28] MEDS: Enoxaparin 40 mg Syringe SC SCH (09:16)
--- NOTE | 2016-12-28 09:56 | US ---
Thyroid ultrasound History: Hyperthyroidism. Comparison: None available. Technique: Real-time sonography was performed through the thyroid. Findings: Right lobe: 7.7 x 3.5 x 3.7 centimeters. Bulky heterogeneous echotexture. Increased flow. Nodules: Solid rounded echogenic nodule measuring 4 x 3 x 4 millimeters. Solid rounded echogenic nodule measuring 3 x 4 x 3 millimeters. Thyroid isthmus measures 1.3 centimeters. Heterogeneous echotexture. Hypervascular flow. Left lobe: 7.3 x 3.4 x 3.5 centimeters. Bulky heterogeneous echotexture. Increased flow. Nodules: Solid rounded echogenic focus measuring 5 x 4 x 4 millimeters. Solid mixed echogenic nodule measuring 8 x 6 x 9 millimeters. Impression: Bilateral thyroid nodules. Enlarged heterogeneous echotexture of the thyroid. Hypervascular flow throughout the thyroid.
--- NOTE | 2016-12-28 10:46 | CP.PCM.PN ---
Subjective - Date & Time of Evaluation Date of Evaluation: 12/27/16 Time of Evaluation: 11:08 - Subjective Subjective: Pt seen and examined at bedside. Pt sitting up in bed, in no apparent distress, eating breakfast. Pt has no complaints this morning. Denies headache, chest pain , sob, palpitations, nausea, vomiting or leg pain. Objective - Vital Signs/Intake and Output Vital Signs (last 24 hours): Temp Pulse Resp BP Pulse Ox 98.5 F 87 21 139/78 96 12/28/16 07:00 12/28/16 04:00 12/28/16 04:00 12/28/16 04:00 12/28/16 04:00 Intake and Output: 12/28/16 12/28/16 06:59 18:59 Intake Total 120 Output Total 300 Balance -180 - Medications Medications: Current Medications Acetaminophen (Tylenol 325mg Tab) 650 mg PO Q4 PRN PRN Reason: Fever >100.4 F Last Admin: 12/28/16 06:00 Dose: 650 mg Enoxaparin Sodium (Lovenox) 40 mg SC DAILY [facility] Last Admin: 12/28/16 09:16 Dose: 40 mg Hydrocortisone Sodium Succinate (Solu-Cortef) 50 mg IV BID [facility] Last Admin: 12/28/16 09:15 Dose: 50 mg Ceftriaxone Sodium 1 gm/ (Sodium Chloride) 100 mls @ 200 mls/hr IVPB DAILY [facility] Last Admin: 12/28/16 09:13 Dose: 200 mls/hr Methimazole (Tapazole) 20 mg PO TID [facility] Last Admin: 12/28/16 09:14 Dose: 20 mg Pantoprazole Sodium (Protonix Ec Tab) 40 mg PO DAILY [facility] Last Admin: 12/28/16 09:13 Dose: 40 mg Propranolol HCl (Inderal) 40 mg PO Q6H [facility] Last Admin: 12/28/16 09:15 Dose: 40 mg - Labs Labs: 12/27/16 06:50 12/27/16 06:50 PT 15.8 SECONDS (9.7-12.2) H 12/25/16 17:50 INR 1.4 12/25/16 17:50 APTT 36 SECONDS (21-34) H 12/25/16 17:50 - Constitutional Appears: No Acute Distress - Head Exam Head Exam: ATRAUMATIC, NORMAL INSPECTION, NORMOCEPHALIC - Eye Exam Eye Exam: EOMI, Normal appearance, PERRL Pupil Exam: NORMAL ACCOMODATION, PERRL - Respiratory Exam Respiratory Exam: Clear to Ausculation Bilateral, NORMAL BREATHING PATTERN - Cardiovascular Exam Cardiovascular Exam: REGULAR RHYTHM, +S1, +S2. absent: Murmur - GI/Abdominal Exam GI & Abdominal Exam: Soft, Normal Bowel Sounds. absent: Tenderness Assessment and Plan (1) Thyroid storm Status: Acute (2) Bilateral leg edema Status: Acute (3) Congestive heart failure (CHF) Status: Acute
--- NOTE | 2016-12-28 15:15 | PN ---
DATE: 12/28/2016 ROOM: ICU room 14A This is a 41-year-old female with marked hyperthyroidism related to poor adherence to her medical the rapy as recommended and presented here with palpitations and marked sinus tachycardia and is now dayoin bc followed closely for metabolic management. She is much less tremulous at this time with improved s ense of wellbeing both physically and emotionally as noted thereof and also as expected with improvem ent of her thyroid studies as noted. Her latest chemistries showed a BUN of 14, sodium 136, potassiu m 3.6, chloride 107, CO2 of 23, glucose 136, and creatinine 0.3. The repeat thyroid study showed a T 4 of 16.0 with a TSH of less than 0.02. So, at this time, we will actually taper down her steroids to once daily as ordered and eventually di scontinue by tomorrow as indicated. We will also continue, however, the Tapazole given as 20 mg p.o. t.i.d. as ordered. Her repeat free T4 was 6.99. So, at this time, would continue the same high dose regimen for the Tapazole as ordered to allow for dose equilibration and full therapeutic response thereof. It takes 3-6 months for the full improveme nt of the TSH level as noted. However, the total T4 should improve dramatically over the next few we eks as expected. We will follow and advise accordingly. Sarika Bledsoe MD cc: [phone] TT: 12/28/2016 15:14:53 Confirmation # [id number] Dictation # [id number]
[2016-12-29 06:57] LABS: BASO % 0.3 % (0.0-2.0); EOS % 0.7 % (0.0-4.0); HEMATOCRIT 27.3 % (34.0-47.0); LYMPH % 33.6 % (20.0-40.0); MEAN CELL VOLUME 79.1 fL (81.0-99.0); MEAN CORPUSCULAR HEMOGLOBIN 26.3 pg (27.0-31.0); MEAN CORPUSCULAR HGB CONC 33.3 g/dL (33.0-37.0); MONO # 0.6 K/uL (0.0-0.8); MONO % 10.6 % (0.0-10.0); WHITE BLOOD COUNT 5.9 K/uL (4.8-10.8)
[2016-12-29 07:44] LABS: CHLORIDE 102 mmol/L (98-107)
[2016-12-29 07:45] LABS: POTASSIUM 3.1 mmol/L (3.6-5.2); SODIUM 134 mmol/L (132-148)
[2016-12-29 07:47] LABS: GFR AFRICAN-AMERICAN > 60
[2016-12-29 07:48] LABS: ALB/GLOB RATIO 0.7 (1.0-2.1); ALKALINE PHOSPHATASE 79 U/L (38-126); ALT/SGPT 27 U/L (9-52); AST/SGOT 26 U/L (14-36); BILIRUBIN,TOTAL 1.5 mg/dL (0.2-1.3); BLOOD UREA NITROGEN 10 mg/dL (7-17); CARBON DIOXIDE 25 mmol/L (22-30); TOTAL PROTEIN 5.6 g/dL (6.3-8.3)
[2016-12-29 07:49] LABS: CALCIUM 7.6 mg/dl (8.6-10.4); GLUCOSE,RANDOM 74 mg/dL (65-105); MAGNESIUM 1.7 mg/dL (1.6-2.3); PHOSPHOROUS 3.6 mg/dL (2.5-4.5)
[2016-12-29 07:56] LABS: T4 16.1 ug/dL (5.5-11.0)
[2016-12-29 08:10] LABS: THYROID STIMULATING HORMONE < 0.02 mIU/L (0.46-4.68)
[2016-12-29] MEDS: Pantoprazole 40 mg EC Tab PO SCH (09:21)
[2016-12-29] MEDS: Enoxaparin 40 mg Syringe SC SCH (09:23)
--- NOTE | 2016-12-29 10:11 | CP.PCM.PN ---
Subjective - Date & Time of Evaluation Date of Evaluation: 12/28/16 Time of Evaluation: 11:14 - Subjective Subjective: Pt seen and examined, having low grade fever, 99.8 decreased urinary symptoms. Objective - Vital Signs/Intake and Output Vital Signs (last 24 hours): Temp Pulse Resp BP Pulse Ox 98.7 F 86 24 137/57 L 93 L 12/29/16 08:00 12/29/16 08:00 12/29/16 08:00 12/29/16 08:00 12/29/16 08:00 Intake and Output: 12/29/16 12/29/16 06:59 18:59 Intake Total 1000 Output Total 1950 Balance -950 - Medications Medications: Current Medications Acetaminophen (Tylenol 325mg Tab) 650 mg PO Q4 PRN PRN Reason: Fever >100.4 F Last Admin: 12/28/16 22:11 Dose: 650 mg Enoxaparin Sodium (Lovenox) 40 mg SC DAILY [facility] Last Admin: 12/29/16 09:23 Dose: 40 mg Hydrocortisone Sodium Succinate (Solu-Cortef) 50 mg IV DAILY [facility] Last Admin: 12/29/16 09:22 Dose: 50 mg Ceftriaxone Sodium 1 gm/ (Sodium Chloride) 100 mls @ 200 mls/hr IVPB DAILY [facility] Last Admin: 12/29/16 09:22 Dose: 200 mls/hr Methimazole (Tapazole) 20 mg PO TID [facility] Last Admin: 12/29/16 09:22 Dose: 20 mg Pantoprazole Sodium (Protonix Ec Tab) 40 mg PO DAILY [facility] Last Admin: 12/29/16 09:21 Dose: 40 mg Propranolol HCl (Inderal) 40 mg PO Q6H [facility] Last Admin: 12/29/16 09:22 Dose: 40 mg Zolpidem Tartrate (Ambien) 5 mg PO HS PRN PRN Reason: Insomnia - Labs Labs: 12/29/16 06:34 12/29/16 06:34 PT 15.8 SECONDS (9.7-12.2) H 12/25/16 17:50 INR 1.4 12/25/16 17:50 APTT 36 SECONDS (21-34) H 12/25/16 17:50 - Constitutional Appears: No Acute Distress - Head Exam Head Exam: ATRAUMATIC, NORMAL INSPECTION, NORMOCEPHALIC - Eye Exam Eye Exam: EOMI, Normal appearance, PERRL Pupil Exam: NORMAL ACCOMODATION, PERRL - Neck Exam Neck Exam: Thyromegaly - Respiratory Exam Respiratory Exam: Clear to Ausculation Bilateral, NORMAL BREATHING PATTERN - Cardiovascular Exam Cardiovascular Exam: REGULAR RHYTHM, +S1, +S2. absent: Murmur - GI/Abdominal Exam GI & Abdominal Exam: Soft, Normal Bowel Sounds. absent: Tenderness - Neurological Exam Neurological Exam: Alert, Awake, CN II-XII Intact, Normal Gait, Oriented x3 Assessment and Plan (1) Thyroid storm Assessment & Plan: tylenol ambein tapazole prednisolone Status: Acute (2) Bilateral leg edema Status: Acute (3) Congestive heart failure (CHF) Status: Acute
[2016-12-29] MEDS ORDERED: Potassium Chloride 20 mEq ER Tab PO SCH (14:45)
--- NOTE | 2016-12-29 17:04 | PN ---
DATE: 12/29/2016 This is a 41-year-old female with overt thyrotoxicosis, presenting here with marked hyperadrenergic a nd constitutional manifestations related to marked hyperthyroidism both historically, clinically, and biochemically and is now being followed closely for metabolic management. She also had supervening sinus tachycardia and has since then improved clinically and hemodynamically as noted thereof. Her l atest chemistry showed a BUN of 10, sodium 134, potassium 3.1, chloride 102, CO2 of 25, glucose 74, a nd creatinine 0.4. Her latest thyroid study showed a T4 of 16.1 mcg/dL with a TSH of less than 0.02 and a free T4 of 3.99. So at this time, we will continue the modified medical therapy given as Tapaz ole 20 mg p.o. t.i.d. after meals as ordered. She will really need this very high dose medical thera py to optimize her thyroid studies and also for her to improve clinically and hemodynamically as note d thereof. The patient will eventually need thyroid resection for management of the very large diffu se toxic goiter as noted. The thyroid ultrasound report showed the presence of the right lobe measur ing 7.7 cm x 3.7 cm with small nodules bilaterally as noted. The left lobe measured 7.3 cm x 3.4 cm as noted. These are all indicative of the so-called moderately enlarged toxic multinodular goiter as noted. So at this time, we will continue the high dose medical therapy with Tapazole given as 20 mg t.i.d. after meals as ordered. Would really highly recommend eventual definitive therapy with surgi ollie resection and near total thyroidectomy once she is more clinically and biochemically stable and c lose to euthyroid with medical therapy. She will follow with Dr. Cox, the processing rep, in [facility] for outpatient thyroid evaluation and management. We will follow. Sarika Bledsoe MD cc: [phone] TT: 12/29/2016 17:03:33 Confirmation # [id number] Dictation # [id number]
[2016-12-29 17:14] VITALS: RESP 20
[2016-12-29 20:43] VITALS: BP 101/40; PULSE 86; O2SAT 86
[2016-12-29 20:44] VITALS: TEMP 99
--- NOTE | 2016-12-29 22:24 | CP.PCM.PN ---
Subjective - Date & Time of Evaluation Date of Evaluation: 12/29/16 Time of Evaluation: 11:23 - Subjective Subjective: Pt seen & examined, continues to improve afebrile, no tacycardia Objective - Vital Signs/Intake and Output Vital Signs (last 24 hours): Temp Pulse Resp BP Pulse Ox 99 F 86 20 101/40 L 86 L 12/29/16 20:00 12/29/16 19:58 12/29/16 19:58 12/29/16 19:58 12/29/16 18:57 - Medications Medications: Current Medications Acetaminophen (Tylenol 325mg Tab) 650 mg PO Q4 PRN PRN Reason: Fever >100.4 F Last Admin: 12/29/16 17:25 Dose: 650 mg Enoxaparin Sodium (Lovenox) 40 mg SC DAILY [facility] Last Admin: 12/29/16 09:23 Dose: 40 mg Hydrocortisone Sodium Succinate (Solu-Cortef) 50 mg IV DAILY [facility] Last Admin: 12/29/16 09:22 Dose: 50 mg Ceftriaxone Sodium 1 gm/ (Sodium Chloride) 100 mls @ 200 mls/hr IVPB DAILY [facility] Last Admin: 12/29/16 09:22 Dose: 200 mls/hr Methimazole (Tapazole) 20 mg PO TID [facility] Last Admin: 12/29/16 17:26 Dose: 20 mg Pantoprazole Sodium (Protonix Ec Tab) 40 mg PO DAILY [facility] Last Admin: 12/29/16 09:21 Dose: 40 mg Potassium Chloride (K-Dur 20 Meq Er Tab) 40 meq PO DAILY [facility] Stop: 12/31/16 14:46 Last Admin: 12/29/16 16:07 Dose: 40 meq Propranolol HCl (Inderal) 40 mg PO Q6H [facility] Last Admin: 12/29/16 21:50 Dose: 40 mg Zolpidem Tartrate (Ambien) 5 mg PO HS PRN PRN Reason: Insomnia - Labs Labs: 12/29/16 06:34 12/29/16 06:34 PT 15.8 SECONDS (9.7-12.2) H 12/25/16 17:50 INR 1.4 12/25/16 17:50 APTT 36 SECONDS (21-34) H 12/25/16 17:50 - Constitutional Appears: No Acute Distress - Head Exam Head Exam: ATRAUMATIC, NORMAL INSPECTION, NORMOCEPHALIC - Eye Exam Eye Exam: EOMI, Normal appearance, PERRL Pupil Exam: NORMAL ACCOMODATION, PERRL - ENT Exam ENT Exam: Mucous Membranes Moist, Normal Exam - Neck Exam Neck Exam: Full ROM, Normal Inspection. absent: Lymphadenopathy - Respiratory Exam Respiratory Exam: Clear to Ausculation Bilateral, NORMAL BREATHING PATTERN - Cardiovascular Exam Cardiovascular Exam: REGULAR RHYTHM, +S1, +S2. absent: Murmur - GI/Abdominal Exam GI & Abdominal Exam: Soft, Normal Bowel Sounds. absent: Tenderness Assessment and Plan (1) Thyroid storm Status: Acute (2) Bilateral leg edema Status: Acute (3) Congestive heart failure (CHF) Status: Acute
[2016-12-30 06:47] LABS: RBC URINE 9 /hpf (0-3); URINE BACTERIA RARE (<OCC); URINE BILIRUBIN NEGATIVE (NEGATIVE); URINE BLOOD 1+ (NEGATIVE); URINE COLOR Amber (YELLOW); URINE GLUCOSE (UA) NORMAL (Normal); URINE KETONE NEGATIVE (NEGATIVE); URINE LEUKOCYTE ESTERASE 2+ Leu/uL (Negative); URINE PROTEIN NEGATIVE (NEGATIVE); WBC URINE 70 /hpf (0-5)
--- NOTE | 2016-12-30 15:05 | CARD ---
APPROVED REPORT EKG Measurement Heart [id number] <Conclusion> Sinus tachycardia Otherwise normal ECG
--- NOTE | 2016-12-30 23:08 | CP.PCM.DIS ---
Provider - Provider Date of Admission: 12/25/16 20:32 Attending physician: Justino Krishnamurthy MD Time Spent in preparation of Discharge (in minutes): 30 Diagnosis - Discharge Diagnosis (1) Thyroid storm Status: Acute Priority: High (2) Bilateral leg edema Status: Acute (3) Congestive heart failure (CHF) Status: Acute Hospital Course - Lab Results Lab Results: Micro Results 12/25/16 Unknown Naris MRSA Culture (Admit) - Final MRSA NOT DETECTED Most Recent Lab Values WBC 5.9 K/uL (4.8-10.8) 12/29/16 06:34 RBC 3.46 Mil/uL (3.80-5.20) L 12/29/16 06:34 Hgb 9.1 g/dL (11.0-16.0) L 12/29/16 06:34 Hct 27.3 % (34.0-47.0) L 12/29/16 06:34 MCV 79.1 fL (81.0-99.0) L 12/29/16 06:34 MCH 26.3 pg (27.0-31.0) L 12/29/16 06:34 MCHC 33.3 g/dL (33.0-37.0) 12/29/16 06:34 RDW 13.0 % (11.5-14.5) 12/29/16 06:34 Plt Count 192 K/uL (130-400) 12/29/16 06:34 MPV 9.0 fL (7.2-11.7) 12/29/16 06:34 Neut % (Auto) 54.8 % (50.0-75.0) 12/29/16 06:34 Lymph % (Auto) 33.6 % (20.0-40.0) 12/29/16 06:34 Cole % (Auto) 10.6 % (0.0-10.0) H 12/29/16 06:34 Eos % (Auto) 0.7 % (0.0-4.0) 12/29/16 06:34 Baso % (Auto) 0.3 % (0.0-2.0) 12/29/16 06:34 Neut # 3.2 K/uL (1.8-7.0) 12/29/16 06:34 Lymph # 2.0 K/uL (1.0-4.3) 12/29/16 06:34 Cole # 0.6 K/uL (0.0-0.8) 12/29/16 06:34 Eos # 0.0 K/uL (0.0-0.7) 12/29/16 06:34 Baso # 0.0 K/uL (0.0-0.2) 12/29/16 06:34 Neutrophils % (Manual) 87 % (50-75) H 12/27/16 06:50 Band Neutrophils % 1 % (0-2) 12/26/16 06:20 Lymphocytes % (Manual) 11 % (20-40) L 12/27/16 06:50 Monocytes % (Manual) 2 % (0-10) 12/27/16 06:50 Platelet Estimate Normal (NORMAL) 12/27/16 06:50 Large Platelets Present 12/26/16 06:20 RBC Morphology Normal 12/26/16 06:20 Hypochromasia (manual) Slight 12/27/16 06:50 Poikilocytosis (manual Slight 12/27/16 06:50 Anisocytosis (manual) Slight 12/27/16 06:50 PT 15.8 SECONDS (9.7-12.2) H 12/25/16 17:50 INR 1.4 12/25/16 17:50 APTT 36 SECONDS (21-34) H 12/25/16 17:50 pO2 44 mm/Hg (30-55) 12/25/16 17:45 VBG pH 7.47 (7.32-7.43) H 12/25/16 17:45 VBG pCO2 31 mmHg (40-60) L 12/25/16 17:45 VBG HCO3 24.4 mmol/L 12/25/16 17:45 VBG Total CO2 23.6 mmol/L (22-28) 12/25/16 17:45 VBG O2 Sat (Calc) 87.4 % (40-65) H 12/25/16 17:45 VBG Base Excess -0.2 mmol/L (0.0-2.0) L 12/25/16 17:45 VBG Potassium 3.9 mmol/L (3.6-5.2) 12/25/16 17:45 Sodium 135.0 mmol/l (132-148) 12/25/16 17:45 Chloride 106.0 mmol/L (98-107) 12/25/16 17:45 Glucose 88 mg/dl (65-105) 12/25/16 17:45 Lactate 1.2 mmol/L (0.7-2.1) 12/25/16 17:45 FiO2 21.0 % 12/25/16 17:45 Sodium 134 mmol/L (132-148) 12/29/16 06:34 Potassium 3.1 mmol/L (3.6-5.2) L 12/29/16 06:34 Chloride 102 mmol/L (98-107) 12/29/16 06:34 Carbon Dioxide 25 mmol/L (22-30) 12/29/16 06:34 Anion Gap 10 (10-20) 12/29/16 06:34 BUN 10 mg/dL (7-17) 12/29/16 06:34 Creatinine 0.4 MG/DL (0.7-1.2) L 12/29/16 06:34 Est GFR ( Amer) > 60 12/29/16 06:34 Est GFR (Non-Af Amer) > 60 12/29/16 06:34 Random Glucose 74 mg/dL (65-105) 12/29/16 06:34 Calcium 7.6 mg/dl (8.6-10.4) L 12/29/16 06:34 Phosphorus 3.6 mg/dL (2.5-4.5) 12/29/16 06:34 Magnesium 1.7 mg/dL (1.6-2.3) 12/29/16 06:34 Total Bilirubin 1.5 mg/dL (0.2-1.3) H 12/29/16 06:34 AST 26 U/L (14-36) 12/29/16 06:34 ALT 27 U/L (9-52) 12/29/16 06:34 Alkaline Phosphatase 79 U/L (38-126) 12/29/16 06:34 Troponin I < 0.0120 ng/mL (0.00-0.120) 12/25/16 17:50 Total Protein 5.6 g/dL (6.3-8.3) L 12/29/16 06:34 Albumin 2.3 g/dL (3.5-5.0) L 12/29/16 06:34 Globulin 3.3 gm/dL (2.2-3.9) 12/29/16 06:34 Albumin/Globulin Ratio 0.7 (1.0-2.1) L 12/29/16 06:34 Free T4 3.99 ng/dL (0.78-2.19) H 12/29/16 06:34 Thyroxine (T4) 16.1 ug/dL (5.5-11.0) H 12/29/16 06:34 TSH 3rd Generation < 0.02 mIU/L (0.46-4.68) L 12/29/16 06:34 Cortisol AM Sample 5.0 ug/dL (4.46-22.7) 12/29/16 06:34 Venous Blood Potassium 3.9 mmol/L (3.6-5.2) 12/25/16 17:45 Urine Color Tanna (YELLOW) 12/29/16 22:47 Urine Clarity Hazy (Clear) 12/29/16 22:47 Urine pH 6.0 (5.0-8.0) 12/29/16 22:47 Ur Specific [place] 1.014 (1.003-1.030) 12/29/16 22:47 Urine Protein Negative mg/dL (NEGATIVE) 12/29/16 22:47 Urine Glucose (UA) Normal mg/dL (Normal) 12/29/16 22:47 Urine Ketones Negative mg/dL (NEGATIVE) 12/29/16 22:47 Urine Blood 1+ (NEGATIVE) H 12/29/16 22:47 Urine Nitrate Negative (NEGATIVE) 12/29/16 22:47 Urine Bilirubin Negative (NEGATIVE) 12/29/16 22:47 Urine Urobilinogen 4.0 mg/dL (0.2-1.0) H 12/29/16 22:47 Ur Leukocyte Esterase 2+ Kaitlin/uL (Negative) H 12/29/16 22:47 Urine WBC (Auto) 70 /hpf (0-5) H 12/29/16 22:47 Urine RBC (Auto) 9 /hpf (0-3) H 12/29/16 22:47 Urine WBC Clumps (Auto) Many /hpf (NONE) H 12/25/16 17:36 Ur Squamous Epith Cells 19 /hpf (0-5) H 12/29/16 22:47 Urine Bacteria Rare (<OCC) 12/29/16 22:47 Urine HCG, Qual Negative (NEGATIVE) 12/25/16 17:36 Thyroperoxidase Ab >900 IU/mL (<9) H 12/27/16 06:50 - Hospital Course Hospital Course: discharged on PO keeflex, tapazole pt is stable Discharge Exam - Head Exam Head Exam: ATRAUMATIC, NORMAL INSPECTION, NORMOCEPHALIC Discharge Plan - Follow Up Plan Condition: SERIOUS Disposition: HOME/ ROUTINE
--- NOTE | 2016-12-30 23:10 | PN ---
DATE: 12/30/2016 This is a 41-year-old female with recent admission for sinus tachycardia and marked hyperthyroidism a nd was initially treated in the ICU for hemodynamic monitoring and cardiac management and is now also being followed closely for metabolic management. She was started also on high dose medical therapy with Tapazole medications as given and ordered. Moreover, she was also started on IV steroid therapy for prophylactic management of adrenal insufficiency as noted thereof. She has since then been tape red down on IV steroids to oral steroid therapy as noted. Her latest chemistries showed a BUN of 10, sodium 134, potassium 3.1, chloride 102, CO2 of 25, glucose 74, and creatinine 0.4. Her latest thyr oid study showed a T4 of 16.1 mcg/dL with a free T4 of 3.99 and a TSH of less than 0.02. So at this time, would recommend for eventual discharge a lower dose of Tapazole given as 20 mg p.o. b.i.d. afte r meals as ordered. Would also discontinue all steroid therapy as noted and given as the cortisol le vels have been actually super maximal as noted. She has been advised to follow up with a local endoc rinologist in the same workplace where she is employed at the [employer]. We would r ecommend Dr. Jenna Cox to advise of ongoing metabolic and thyroid management. Would highly rec ommend thyroid resection with a near total thyroidectomy once she is closer to euthyroid from high do se medical therapy as given. Sarika Bledsoe MD cc: [id number] TT: 12/30/2016 23:09:21 Confirmation # [id number] Dictation # [id number]
[2016-12-31 14:12] LABS: TSI >700 % baseline (<140)
== END 2016-12-30 13:25 | disposition home or self-care (01) | DRG 300 ==
LOC: C.ER 16:55 → C.9I 20:32 → C.3T 12-29 22:49
PROVIDERS: ADMIT Internal Medicine; ATTEND Internal Medicine
DX: E05.21 Thyrotoxicosis with toxic multinodular goiter with thyrotoxic crisis or storm (principal); I50.9 Heart failure, unspecified; I11.0 Hypertensive heart disease with heart failure; N39.0 Urinary tract infection, site not specified; F17.210 Nicotine dependence, cigarettes, uncomplicated; B96.20 Unspecified Escherichia coli [E. coli] as the cause of diseases classified elsewhere; E78.5 Hyperlipidemia, unspecified